=== PATIENT | female | born 1985 | race Caucasian/White ===

== ENCOUNTER 2019-01-21 19:49 | Outpatient (CLI) | payer OTHER ==
[~2019-01-21] VITALS: Ht 175.3 cm; Wt 93.2 kg
[~2019-01-21 19:49] MED LIST: IBUP-1222 PO; OXYC-302 PO; PREN1TAB56 PO
[2019-01-21] MEDS ORDERED: TERBUTALINE 1 MG/ML, 1ML ONE (20:06)
[2019-01-21 20:25] VITALS: BP 125/72
[2019-01-21] MEDS ORDERED: TERBUTALINE 1 MG/ML, 1ML SQ ONE (20:30)
[2019-01-21 21:05] LABS: MICROSCOPIC AUTO
[2019-01-21 21:09] LABS: CULTURE INDICATED? YES
== END 2019-01-21 21:48 | disposition home or self-care (01) ==
LOC: LDOP 19:49
PROVIDERS: ATTEND Obstetrics & Gynecology
DX: O26.893 Other specified pregnancy related conditions, third trimester (principal); R10.9 Unspecified abdominal pain; Z3A.34 34 weeks gestation of pregnancy
CPT/HCPCS: 59025; 81001; 87086; 99211; J3105; G0463

== ENCOUNTER 2019-02-02 10:01 | Outpatient (CLI) | payer OTHER ==
[~2019-02-02] VITALS: Ht 175.3 cm; Wt 93.2 kg
[2019-02-02 10:12] VITALS: BP 118/77
== END 2019-02-02 13:03 | disposition home or self-care (01) ==
LOC: LDOP 10:01
PROVIDERS: ATTEND Obstetrics & Gynecology
DX: O42.913 Preterm premature rupture of membranes, unspecified as to length of time between rupture and onset of labor, third trimester (principal); O64.0XX0 Obstructed labor due to incomplete rotation of fetal head, not applicable or unspecified; Z3A.36 36 weeks gestation of pregnancy
CPT/HCPCS: 59025; 76815; 84112; 99211; G0463